=== PATIENT | male | born 1965 | race Caucasian/White ===

== ENCOUNTER 2022-01-04 04:30 | Day surgery (SDC) | payer BC, OTHER ==
[2022-01-04 07:31] VITALS: BMI 34.4
[2022-01-04 08:36] VITALS: TEMP 97.1
[2022-01-04 09:32] VITALS: BP 114/62; PULSE 100
== END 2022-01-04 09:45 | disposition home or self-care (01) ==
LOC: JASU-ENDO 04:30
PROVIDERS: ATTEND Internal Medicine Gastroenterology
PROC: 0DB78ZX Excision of Stomach, Pylorus, Via Natural or Artificial Opening Endoscopic, Diagnostic (ICD-10-PCS; 2022-01-04)
PROC: 0DJD8ZZ Inspection of Lower Intestinal Tract, Via Natural or Artificial Opening Endoscopic (ICD-10-PCS; principal; 2022-01-04 08:00)
DX: Z12.11 Encounter for screening for malignant neoplasm of colon (principal); K57.30 Diverticulosis of large intestine without perforation or abscess without bleeding; K29.50 Unspecified chronic gastritis without bleeding; R12 Heartburn
CPT/HCPCS: 88305-TC; 88342-TC